=== PATIENT | male | born 1955 | race Caucasian/White ===

== ENCOUNTER → 2016-09-25 | Outpatient (CLI) | payer MEDICARE, OTHER ==
--- NOTE | 2016-09-25 09:58 | RAD ---
Indication lung nodule. Axial images through the chest were obtained. No prior imaging of the chest is available. No IV contrast was administered. Imaging through the upper abdomen is unremarkable. There are a few calcified mediastinal lymph nodes. Significant pathologic hilar or mediastinal adenopathy is not seen. There is some coronary artery calcification. There is some mild underlying emphysematous changes. There is a 8 mm calcified parenchymal nodule in the left upper lobe, image 19 series 2. There are 2 pulmonary nodules slightly more caudally in the left upper lobe images 34 and 35 each measuring approximately 5 mm. One is positioned centrally in the left lung and one immediately adjacent to the heart. Follow-up imaging along the lines of the Fleischner criteria should be considered. A dominant soft tissue mass in either lung is not seen. An acute parenchymal infiltrate is not seen. There is some scarring in the right middle lobe. IMPRESSION:: Densely calcified 8 mm granuloma in the left upper lobe. 2 5-mm pulmonary nodules additionally seen in the left lung as outlined above. Mild underlying emphysematous changes. Minimal scarring in the right middle lobe. PQRS Compliance Statement: One or more of the following individualized dose reduction techniques were utilized for this examination: 1. Automated exposure control 2. Adjustment of the mA and/or kV according to patient size 3. Use of iterative reconstruction technique
== END | disposition home or self-care (01) ==
LOC: CT 09:15
PROVIDERS: ATTEND Internal Medicine Critical Care Medicine
DX: R91.1 Solitary pulmonary nodule (principal)
CPT/HCPCS: 71250

== ENCOUNTER → 2017-04-16 | Outpatient (CLI) | payer OTHER | END | disposition home or self-care (01) | LOC: KCIC CT 08:13 | DX: J43.9 Emphysema, unspecified (principal); I25.10 Atherosclerotic heart disease of native coronary artery without angina pectoris; M41.86 Other forms of scoliosis, lumbar region; N20.0 Calculus of kidney; R91.1 Solitary pulmonary nodule; Z87.891 Personal history of nicotine dependence | CPT/HCPCS: 71250 ==